=== PATIENT | male | born 1980 | race Caucasian/White ===

== ENCOUNTER 2016-07-07 22:05 | Emergency (ER) | payer OTHER ==
[~2016-07-07] VITALS: Ht 193 cm; Wt 138.6 kg
[2016-07-07 22:10] VITALS: BP 143/88; PULSE 90; RESP 16; O2SAT 99
--- NOTE | 2016-07-08 01:16 | ED.REPORT ---
HPI-Abd Pain M Under 38 Date of Service July 08, 2016 ED Provider: Jae Lewis MD The pt is a 35 y/o male w/ a hx of hypertension presenting to the ED complaining of a growth in his scrotum area. He reports it starting small but growing to the size of half a golf ball w/ pain radiating to his testicles. He denies any pain, pus, or infection. Nursing Notes Stated Complaint: LUMP IN GROIN Chief Complaint: Male Abdominal Pain Nursing Notes Reviewed: Yes ([employer], medications not reconciled) Allergies: Uncoded Allergies: IV CONTRAST (Allergy, Unknown, 07/07/16) General Time Seen by MD: 01:15 Chief Complaint Other (Growth in scrotum area ) Hx Obtained From: Patient Arrived By: Walk-in Sudden in Onset?: Yes Onset Occurred: 5 - 8 hours ago Recent Healthcare: No recent doctor visit, No recent hospitalization Similar Sx Previous: No Past Medical History Past Medical History HTN Past Surgical History None reported Smoking History Former Smoker Social History Alcohol Use: Denies alcohol use Drug Use: Denies drug use Ambulatory Status Independent Review of Systems Constitutional: Denies: Chills, Fever Male: Reports Scrotal swelling, Reports Testicular pain Physical Exam Initial Vital Signs Vital Signs (First) Date Time Temp Pulse Resp B/P Pulse Ox O2 Delivery O2 Flow Rate FiO2 07/07/16 22:10 36.7 90 16 143/88 99 Initial VS: Reviewed, Vital signs normal General/Constitutional: Awake, Alert Respiratory / Chest: Atraumatic, Breath sounds NL, Breath sounds = bilat, No rales, No rhonchi, No wheezing Cardiovascular: Heart rate NL, Regular rhythm, Heart sounds NL Abdomen: Atraumatic, Non-tender Back: Atraumatic, Full range of motion Head / Eyes: Atraumatic, Normocephalic ENT: Atraumatic, Airway patent Male Genitourinary: Penis NL, No penile discharge, Testes NL Palpable indurated lump at base of L scrotum No overt cellulitis no purulence Neurologic: Oriented X3, Speech NL Lower Extremity / Pelvis / MS: Atraumatic, Full range of motion Skin: Atraumatic, Color NL, No rash, Warm, Dry Psychiatric: Affect NL, Mood NL Interpretation & Diagnostics US Scrotum Conclusion: Left sided-scrotal phlegmon with early suppuration highly suspicious for developing abscess in the right clinical setting. Bilateral testicular flow. Other findings above. This report was transmitted to the emergency room at 07/08/2016 - 3:15:43 AM PDT. Re-Eval/Medical Decision Med Decision/Clinical Course This is a 35-year-old male who presents with a lump in the left scrotum. Some discomfort, no dysuria, no fevers. Previous history of MRSA. On exam there is area of some developing erythema and induration, but no boby clinically evident abscess. This along the scrotum. He does complain of some testicular discomfort. An ultrasound was obtained and revealed normal testicles normal flow, and the area of involvement is hyperemic and inflamed, there is no abscess amenable to drainage. The patient is being discharged in course of cephalexin and Bactrim given the likelihood of a developing infection , and it was explained it may develop to ahead over the next few days and if so needs to return for drainage. Routine precautions reviewed. Source of Hx: Old records Re-Evaluation/Progress : Time of Eval: 02:50 Re-Evaluation/Progress Note: Pt rechecked. Informed pt of plan for treatment. Pt understands and agrees with plan for treatment. F/U instructions and RTER warnings given. All questions addressed. Differential Diagnosis: Positive: Cellulitis, Negative: Abscess, Acute abdominal pain, Bladder outlet obstruct, Esophageal rupture (looking), Gun shot wound abdomen, Peritonitis, Torsion appendix teste L , Torsion appendix teste R, Torsion testicle L, Torsion testicle R, Trauma, abdominal Counseled Regarding: Diagnosis, Need for follow-up, When/why to return to ED Patient Discharge & Departure Primary Impression: Folliculitis Disposition: Home Discharge Condition All VS Reviewed: Yes Condition: Stable Additional Instructions: 1. The testicles were normal on ultrasound. The area of involvement does not look like a small developing infection. At this stage it looks like an early cellulitis-there is no discrete abscess. 2. There is a chance that it may matured even with antibiotics into an abscess and moderate required drainage-that would mean that this become slightly more painful, swollen, and he would need to return for reevaluation if this occurs. However there is also reasonable chance that simple treatment with antibiotics alone be adequate to resolve this entirely. He does require 2 antibiotics to cover the common pathogens involved. 3. Take trimethoprim sulfa 1 tablet twice a day for the next 7 days 4. Take cephalexin 500 mg 3 times a day for the next 70 5. Activities as tolerated 6. It usually takes about 36-48 hours of taking the antibiotics before marked improvement is noted. 7. Return to emergency department if new or worsening symptoms occur. Referrals: OTHER,PHYSICIAN (PCP) Scribe Attestation Portions of this note were transcribed by Marvin Shah. I, Dr. Lewis personally performed the history, physical exam and medical decision-making; I reviewed and confirmed the accuracy of the information in the transcribed note. Signed by : Aleyda Huggins, 07/07/16 and 0314. Jae Lewis MD July 08, 2016 01:16 Marvin Shah July 08, 2016 02:10
[2016-07-08] MEDS ORDERED: _Trimethoprim-Sulfa 160/800 mg Tablet PO SCH (02:45)
[2016-07-08 04:10] VITALS: BP 138/84; PULSE 81; RESP 16; O2SAT 100
[2016-07-08] MEDS ORDERED: _Cephalexin 500 mg Capsule PO SCH (08:30)
--- NOTE | 2016-07-08 10:35 | DRSVH ---
PROCEDURE: US TESTICULAR SONOGRAM WITH DOPPLER INDICATIONS: pain, mass L TECHNIQUE: Real-time scanning was performed of the scrotum and testicles, with image documentation. Color and p ulse Doppler interrogation was performed of both testicles. COMPARISON: None. FINDINGS: Right: Testicle is normal in size at 4.6 x 2.8 x 2.8 cm, and homogenous in echotexture. Microcalcif ications are present. Epididymis is normal in overall size and morphology. No hydrocele or varicocel es. Overlying scrotal skin is normal in thickness. Left: Testicle is normal in size at 4.3 x 2.8 x 2.9 cm, and homogeneous in echotexture. Along the l ateral aspect of the scrotal soft tissue there is a 9 x 9 x 7 mm focus of heteroechogenicity with per ipheral hyperemia. Microcalcifications are present. Epididymis is normal in overall size and morpholo gy. Trace hydrocele without varicoceles. Overlying scrotal skin is normal in thickness. Doppler: Color and pulse Doppler demonstrate normal and symmetric arterial flow in both testicles. IMPRESSION: 1. Left scrotal focus of hyperemia suspicious for phlegmon/developing abscess. Clinical correlation i s recommended. Left trace hydrocele. Dictated by: Mariella Alamo M.D. on 07/08/2016 at 10:31 Approved by: Mariella Alamo M.D. on 07/08/2016 at 10:33
== END 2016-07-08 04:12 | disposition home or self-care (01) ==
LOC: SED 22:05
DX: L73.9 Follicular disorder, unspecified (principal); I10 Essential (primary) hypertension; Z87.891 Personal history of nicotine dependence